=== PATIENT | female | born 2000 | race Caucasian/White ===

== ENCOUNTER 2021-11-17 12:39 | Emergency (ER) | payer OTHER ==
[2021-11-17 14:04] LABS: HEMOGLOBIN 12.2 gm/dl (12.3-15.3); RED BLOOD COUNT 4.24 M/UL (4.00-5.10); WHITE BLOOD COUNT 5.4 K/UL (4.5-11.0)
[2021-11-17 14:23] LABS: BUN/CREATININE RATIO 8 (0-10)
[2021-11-17] MEDS ORDERED: REGLAN10 MG PO (14:49)
== END 2021-11-17 15:13 | disposition home or self-care (01) ==
LOC: ER1 12:39
PROVIDERS: Physician Assistant Medical
DX: O21.9 Vomiting of pregnancy, unspecified (principal); O99.891 Other specified diseases and conditions complicating pregnancy; R10.11 Right upper quadrant pain; Z3A.12 12 weeks gestation of pregnancy
CPT/HCPCS: 80053; 81001; 83690; 85025; 99284

== ENCOUNTER 2022-04-07 19:28 | Outpatient (CLI) | payer OTHER ==
[~2022-04-07 19:28] MED LIST: REGLAN10 MG PO
== END 2022-04-08 00:20 | disposition home or self-care (01) ==
LOC: GENOP 19:28
DX: O99.891 Other specified diseases and conditions complicating pregnancy (principal); M54.50 Low back pain, unspecified; O21.2 Late vomiting of pregnancy; O99.283 Endocrine, nutritional and metabolic diseases complicating pregnancy, third trimester; E28.2 Polycystic ovarian syndrome; Z3A.32 32 weeks gestation of pregnancy
CPT/HCPCS: 81001; 82731; 96360; 96372; J7120

== ENCOUNTER 2022-05-26 16:48 | Inpatient (IN) | payer OTHER ==
[2022-05-26 17:51] LABS: HEMOGLOBIN 11.4 gm/dl (12.3-15.3); RED BLOOD COUNT 3.98 M/UL (4.00-5.10); WHITE BLOOD COUNT 9.9 K/UL (4.5-11.0)
[2022-05-26] MEDS ORDERED: AZESCO TABLET1 EACH PO (18:25)
[2022-05-28] MEDS ORDERED: DOCUSATE SODIU250 MG PO (03:27)
[2022-05-28] MEDS ORDERED: IBUPROFEN600 MG PO (03:27)
[2022-05-29 06:20] LABS: HEMOGLOBIN 10.5 gm/dl (12.3-15.3)
== END 2022-05-29 09:24 | disposition home or self-care (01) | DRG 807 ==
LOC: GENOP 16:48 → OB 17:08
PROVIDERS: ADMIT Obstetrics & Gynecology
PROC: 10907ZC Drainage of Amniotic Fluid, Therapeutic from Products of Conception, Via Natural or Artificial Opening (ICD-10-PCS; 2022-05-27)
PROC: 3E033VJ Introduction of Other Hormone into Peripheral Vein, Percutaneous Approach (ICD-10-PCS; 2022-05-27)
PROC: 10E0XZZ Delivery of Products of Conception, External Approach (ICD-10-PCS; principal; 2022-05-28)
PROC: 0KQM0ZZ Repair Perineum Muscle, Open Approach (ICD-10-PCS; 2022-05-28)
DX: O99.284 Endocrine, nutritional and metabolic diseases complicating childbirth (principal); Z37.0 Single live birth; E28.2 Polycystic ovarian syndrome; Z3A.39 39 weeks gestation of pregnancy; Z28.310 Unvaccinated for COVID-19; Z80.8 Family history of malignant neoplasm of other organs or systems; O70.1 Second degree perineal laceration during delivery
CPT/HCPCS: 36415; 81001; 85014; 85018; 85025; 90715; J2590